=== PATIENT | female | born 1985 | race Caucasian/White ===

== ENCOUNTER 2017-12-09 13:04 | Inpatient (IN) | payer BC ==
[2017-12-09 14:01] VITALS: BMI 31.7
[2017-12-09] MEDS ORDERED: Penicillin G 5 Million Unit Vial IVPB ONE ×2 (14:07→18:35)
[2017-12-09] MEDS ORDERED: Lactated Ringer's 1,000 ML IV SCH (14:15)
[2017-12-09 14:59] LABS: BASO % 0.5 % (0.0-2.0); EOS # 0.1 K/uL (0.0-0.7); EOS % 1.7 % (0.0-4.0); HEMOGLOBIN 11.3 g/dL (11.0-16.0); LYMPH # 1.5 K/uL (1.0-4.3); LYMPH % 18.8 % (20.0-40.0); MEAN CELL VOLUME 86.3 fL (81.0-99.0); MEAN CORPUSCULAR HEMOGLOBIN 29.6 pg (27.0-31.0); MEAN CORPUSCULAR HGB CONC 34.3 g/dL (33.0-37.0); MEAN PLATELET VOLUME 8.6 fL (7.2-11.7); MONO # 0.5 K/uL (0.0-0.8); NEUT # 5.6 K/uL (1.8-7.0); RBC 3.82 Mil/uL (3.80-5.20); RED CELL DISTRIBUTION WIDTH 16.9 % (11.5-14.5); WHITE BLOOD COUNT 7.8 K/uL (4.8-10.8)
[2017-12-09 15:27] LABS: ALBUMIN 3.2 g/dL (3.5-5.0); ALT/SGPT 23 U/L (9-52); AST/SGOT 28 U/L (14-36); BLOOD UREA NITROGEN 10 mg/dL (7-17); GFR AFRICAN-AMERICAN > 60; GFR NON-AFRICAN AMERICAN > 60
--- NOTE | 2017-12-09 17:46 | OBPN ---
Datetime: 12/09/2017 17:42 IP Progress Impression: Reassuring heart rate IP Informed Consent Obtain: Vaginal Delivery IP Progress Plan: Induction; Cervical Ripening Contraction Comments Provider: irregular FHR - Baseline A Provider: 150s Gestation - Est Wks by US: 38 3/7 Weight - Estimated: 6lbs Presentation-Admit: Vertex IP Progress Note Comment: BSUS performed and confirmed cephalic position. Ceriviil inserted @ 5:44am . Vital Signs Provider: Reviewed NICHD Accel Fetus A IP Provider: 15X15 NICHD Variability Prov Fetus A: Moderate 6-25bpm Dilatation, Provider: FT Effacement, Provider: 30 Station, Provider: -3 Datetime: 12/09/2017 14:21 NICHD Decel Fetus A IP Provider: None
--- NOTE | 2017-12-09 18:37 | OBPN ---
Datetime: 12/09/2017 18:32 IP Progress Impression Other: SROM: IP Progress Impression: Normal progression of labor; Reassuring heart rate; Rupture of membran es IP Informed Consent Obtain: Induction of Labor IP Progress Plan: Continue present management; Cervical Ripening Contraction Comments Provider: irregular FHR - Baseline A Provider: 150 IP Progress Note Comment: PT SROM @6:30pm. meconium. SVE: 08/28/-3. continue currrent management. Cat egory 1 Tracing. NICHD Accel Fetus A IP Provider: 15X15 NICHD Variability Prov Fetus A: Moderate 6-25bpm Dilatation, Provider: 1 Effacement, Provider: 30 Station, Provider: -2
[2017-12-09] MEDS ORDERED: Oxytocin 30 UNIT 30 UNITS/500 ML BAG IV PRN (19:27)
--- NOTE | 2017-12-09 19:30 | CP.PCM.PN ---
Subjective - Date & Time of Evaluation Date of Evaluation: 12/09/17 Time of Evaluation: 19:29 - Subjective Subjective: Cervidil was removed spontaneously. Will start oxytocin. Objective - Medications Medications: Current Medications Acetaminophen (Tylenol 325mg Tab) 650 mg PO Q6 PRN PRN Reason: Pain, Mild (1-3) Acetaminophen (Tylenol 325mg Tab) 650 mg PO Q6 PRN PRN Reason: Fever >100.4 F Lactated Ringer's (Lactated Ringer's) 1,000 mls @ 0 mls/hr IV .Q0M [facility] PRN Reason: Per Protocol Stop: 12/12/17 23:59 Last Admin: 12/09/17 17:28 Dose: 125 mls/hr Penicillin G Potassium 2.5 mu/ (Sodium Chloride) 50 mls @ 2.5 mls/hr IVPB Q4H [facility] PRN Reason: Protocol Stop: 12/12/17 23:59 Oxytocin (Pitocin) 30 units in 500 mls @ 2 mls/hr IV .Q24H PRN; Protocol; 0.002 UNIT/MIN PRN Reason: Labor Levothyroxine Sodium (Levothroid) 137 mcg PO DAILY@0630 [facility] - Labs Labs: 12/09/17 14:49 12/09/17 15:09
[2017-12-09] MEDS ORDERED: Fentanyl/Bupivacaine HCl 250 ML EPI ONE (21:13)
--- NOTE | 2017-12-09 21:13 | CP.PCM.HP ---
History of Present Illness - History of Present Illness History of Present Illness: Pt is h34 @ 38 10/03 who presented today with compliants of vaginal spotting/bleeding since 11:30am. She states that this is her first epidsode and denies pain. Present on Admission - Present on Admission Any Indicators Present on Admission: No History of DVT/PE: No History of Uncontrolled Diabetes: No Urinary Catheter: No Decubitus Ulcer Present: No Review of Systems - Constitutional Constitutional: As Per HPI - EENT Eyes: As Per HPI Ears: As Per HPI - Breasts Breasts: As Per HPI - Cardiovascular Cardiovascular: As Per HPI - Respiratory Respiratory: As Per HPI - Gastrointestinal Gastrointestinal: As Per HPI - Reproductive: Female Reproductive:Female: As Per HPI Additional comments: Gravid uterus Past Patient History - Past Medical History & Family History Past Medical History?: Yes Pertinent Family History: Hx of GDMA1 diet controlled - Past Social History Smoking Status: Never Smoked Alcohol: None Drugs: Denies - CARDIAC Hx Cardiac Disorders: No Hx Angina: No Hx Atrial Fibrillation: No Hx Cardia Arrhythmia: No - PULMONARY Hx Respiratory Disorders: No Hx Asthma: No Hx Bronchitis: No Hx Chronic Obstructive Pulmonary Disease (COPD): No Hx Emphysema: No Hx Lung Cancer: No Hx Pneumonia: No - ENDOCRINE/METABOLIC Hx Hyperthyroidism: No Hx Hypothyroidism: Yes (on Synthroid) Meds Allergies/Adverse Reactions: Allergies Allergy/AdvReac Type Severity Reaction Status Date / Time No Known Allergies Allergy Verified 05/12/14 13:37 Physical Exam - Constitutional Appears: Well - Head Exam Head Exam: NORMAL INSPECTION - Eye Exam Eye Exam: Normal appearance - ENT Exam ENT Exam: Mucous Membranes Moist - Neck Exam Neck exam: Positive for: Normal Inspection - Exam External exam: NORMAL EXTERNAL EXAM Bimanual exam: NORMAL BIMANUAL EXAM Additional comments: SVE: closed/long/hi - Back Exam Back exam: NORMAL INSPECTION - Psychiatric Exam Psychiatric exam: Normal Affect, Normal Mood Results - Labs Result Diagrams: 12/09/17 14:49 12/09/17 15:09 Labs: Laboratory Results - last 24 hr 12/09/17 12/09/17 12/09/17 14:49 14:49 14:49 WBC 7.8 RBC 3.82 Hgb 11.3 Hct 33.0 L MCV 86.3 MCH 29.6 MCHC 34.3 RDW 16.9 H Plt Count 233 MPV 8.6 Neut % (Auto) 72.0 Lymph % (Auto) 18.8 L [place] % (Auto) 7.0 Eos % (Auto) 1.7 Baso % (Auto) 0.5 Neut # (Auto) 5.6 Lymph # (Auto) 1.5 [place] # (Auto) 0.5 Eos # (Auto) 0.1 Baso # (Auto) 0.0 Sodium Potassium Chloride Carbon Dioxide Anion Gap BUN Creatinine Est GFR ( Amer) Est GFR (Non-Af Amer) POC Glucose (mg/dL) Random Glucose Calcium Total Bilirubin AST ALT Alkaline Phosphatase Total Protein Albumin Globulin Albumin/Globulin Ratio RPR Nonreactive HIV 1&2 Antibody Screen Negative Blood Type Antibody Screen 12/09/17 12/09/17 12/09/17 15:09 16:15 19:54 WBC RBC Hgb Hct MCV MCH MCHC RDW Plt Count MPV Neut % (Auto) Lymph % (Auto) [place] % (Auto) Eos % (Auto) Baso % (Auto) Neut # (Auto) Lymph # (Auto) [place] # (Auto) Eos # (Auto) Baso # (Auto) Sodium 140 Potassium 4.0 Chloride 107 Carbon Dioxide 23 Anion Gap 14 BUN 10 Creatinine 0.5 L Est GFR ( Amer) > 60 Est GFR (Non-Af Amer) > 60 POC Glucose (mg/dL) 76 Random Glucose 66 Calcium 9.0 Total Bilirubin 0.7 AST 28 ALT 23 Alkaline Phosphatase 182 H Total Protein 6.6 Albumin 3.2 L Globulin 3.4 Albumin/Globulin Ratio 1.0 RPR HIV 1&2 Antibody Screen Blood Type B POSITIVE Antibody Screen Negative Assessment & Plan - Assessment and Plan (Free Text) Assessment: [id number] @ 38 10/03 admitted for induction of labor for vaginal bleeding, hx of GDMAx, IVF . Plan: 1) Vaginal bleeding: speculum exam performed and no bleeding noted. SVE: fingtertip/long/hi cervidil inserted for IOL 2) GDMA1- Accucheck q4 hours. 3) Hypothyroid: on synthroid. - Date & Time Date: 12/09/17 Time: 19:00
--- NOTE | 2017-12-09 23:20 | OBPN ---
Datetime: 12/09/2017 23:14 IP Progress Impression: Normal progression of labor; Reassuring heart rate IP Progress Plan: Continue present management Membranes, Provider: Ruptured FHR - Baseline A Provider: 125 Gestation - Est Wks by US: 38.3 Presentation-Admit: Vertex IP Progress Note Comment: @ 38+ wks IVF , hypothryiod adn gbs bacturiia c/o of VB this mornign and referred to er for evlaution. pt reports bleeding only wiht wiping and started having cr amping that was increaseing intnesity and severiyt, and rpeorts decreased feta lmvomentes since this morning VSS VE: /-1 SROM meconium A/P @ 38.3 wks GA IVF , GBS postive in active labor -admitted -blood glucos q 4 hour -Cervidil spotneaotuly expeclled adn SROM, meconium -ctx q 2 min -prgoression from FT-->3cm-->6cm-->9cm -con tivh, oxygen, left lateral ivh Vital Signs Provider: Reviewed; Within Normal Limits NICHD Variability Prov Fetus A: Moderate 6-25bpm Dilatation, Provider: 9 Effacement, Provider: 90 Station, Provider: -1 NICHD Decel Fetus A IP Provider: None
[2017-12-10] MEDS ORDERED: Oxytocin 30 UNIT 30 UNITS/500 ML BAG IV ONE (00:35)
[2017-12-10] MEDS ORDERED: Lidocaine 2% MPF (5 ml) Inj ONE (02:05)
[2017-12-10] MEDS ORDERED: Oxytocin 10 Units/ml Inj ONE (02:11)
[2017-12-10] MEDS ORDERED: Acetaminophen-Codeine 300/30 mg Tab PO PRN (02:46)
[2017-12-10] MEDS ORDERED: Benzocaine/Menthol 20%-0.5% Topical Spray (60 ml) TOP PRN (02:46)
[2017-12-10] MEDS ORDERED: Oxycodone/Acetaminophen 5/325 mg Tab PO PRN ×2 (02:46)
--- NOTE | 2017-12-10 02:47 | OBDS ---
DELIVERY PERSONNEL Delivery Doctor: Bright Day MD Scrub Nurse: Leslye Porter Central Processing Tech: Kim Stewart RN Anesthesiologist: MATERNAL INFORMATION Delivery Anesthesia: Epidural Medications in Delivery: Pitocin Estimated Blood Loss (ml): 400 Placenta Cultured: Yes Maternal Complications: None Provider Comments: pt was fully dilated and pushing, verbal consent for right mediolateral epistomy given. atrumatic, spontaenous delieyr of head in OP position, no nuchal cord noted. Aturmatic, spoena tous deliveyr of naterior followed by posteri shoulder followed by delivery of the body. Both oral an d nasal passages of the baby wer ebulb suctioned, umbical cord was clamped and cut .baby handed to [facility] shipping manager. Cord blood cand cord gases colelcted ans senx x 2. Spotenaou deliveyr of intact placenta with membrnea. fundus fimr, goo dhemsosis, right mediolateral and second degree prienal lac eationed rapired iwt local anestehsi lidocaien with epinephrine with 2-0 and 3-0 chormic. Good hemos tis, no complicated live male agpars 5,8 weight of 6lbs 5 ounces ebl 400ml no complicaitns LABOR SUMMARY EDC: 12/20/2017 00:00 No. Babies in Womb: 1 Attempted: No Labor Anesthesia: Epidural LABOR INFORMATION Reason for Induction: Other Reason for Induction Other: GDM - Diet Controlled; IVF Complete Dilatation: 12/10/2017 00:24 Cervical Ripening Agents: Cervidil suppository came out voluntarily while patient was using bedpan. Oxytocin: N/A Group B Beta Strep: Positive Antibiotics # of Doses: 2 Antibiotics Time of Last Dose: 12/09/17 @ 2255 Steroids Given: None Reason Steroids Not Administered: Not Applicable Other Reason Not Administered: N/A MEMBRANES Membranes Rupture Method: Spontaneous Rupture of Membranes: 12/09/2017 18:22 Length of Rupture (hrs): 7.85 Amniotic Fluid Color: Light Meconium Amniotic Fluid Amount: Moderate Amniotic Fluid Odor: Normal STAGES OF LABOR Stage 2 hrs: 1 Stage 2 min: 49 Stage 3 hrs: 0 Stage 3 min: 7 VAGINAL DELIVERY Episiotomy: Right Mediolateral Laceration Extension: Second Degree Laceration Type: Perineal Laceration Repair: Yes Laceration Repair Note: right mediolateral episoitomy and second dgree perienal reparied iwth local and 2-0 and 3-0 chormic Initial Vag Sponge Count: 10 Final Vag Sponge Count: 30 Initial Vag Sharps Count: 0 Final Vag Sharps Count: 3 Sponge Count Correct: Yes; Vaginal Sweep Performed Sharps Count Correct: Yes Count Comment: count correct BABY A INFORMATION Infant Delivery Date/Time: 12/10/2017 02:13 Method of Delivery: Vaginal Born in Route : No : N/A Forceps: N/A Vacuum Extraction: N/A Shoulder Dystocia : No SHOULDER DYSTOCIA BABY A Infant Delivery Date/Time: 12/10/2017 02:13 PRESENTATION/POSITION BABY A Presentation: Cephalic Cephalic Presentation: Vertex Breech Presentation: N/A PLACENTA INFORMATION BABY A Placenta Delivery Time : 12/10/2017 02:20 Placenta Method of Delivery: Spontaneous Placenta Status: Delivered SCORES BABY A Heart Rate 1 min: Slow, Below 100 bpm Resp Effort 1 min: Slow, Irregular Reflex Irritability 1 min: Grimace Muscle Tone 1 min: Some Flexion of Extremities Color 1 min: Body [place], Extremities Blue SCORE 1 MIN: 5 Heart Rate 5 min: >100 bpm Resp Effort 5 min: Good Cry Reflex Irritability 5 min: Cough or Sneeze or Pulls Away Muscle Tone 5 min: Some Flexion of Extremities Color 5 min: Body [place], Extremities Blue SCORE 5 MIN: 8 INFANT INFORMATION BABY A Gestational Age at Delivery: 38.4 Gestational Status: Term Infant Outcome : Liveborn Condition : Stable Sex: Male IDENTIFICATION/MEDS BABY A ID Band Number: [id number] ID Band Location: Left Leg; Left Arm Sensor Applied: Yes Sensor Number: [id number] Sensor Location : Cord Clamp WEIGHT/LENGTH BABY A Infant Birthweight (gms): 2870 Weight (lb): 6 Weight (oz): 5 Length Inches: 19.50 Infant Length cms: 49.5 CORD INFORMATION BABY A No. Cord Vessels: 3 Nuchal Cord : N/A Suction: Mouth; Nose; Pharynx ASSESSMENT BABY A Infant Complications: None Physical Findings at Delivery: Molding of the Head Physical Findings Other: At 1min of life irregular and gasping respiration Geographic Information Systems Analyst/ALS Called : No Care By: Transferred To: Remains with Mother
[2017-12-10 07:35] LABS: BASO % 0.1 % (0.0-2.0); HEMOGLOBIN 9.5 g/dL (11.0-16.0); LYMPH # 1.1 K/uL (1.0-4.3); LYMPH % 7.1 % (20.0-40.0); MEAN CELL VOLUME 86.1 fL (81.0-99.0); MEAN CORPUSCULAR HEMOGLOBIN 29.4 pg (27.0-31.0); MEAN CORPUSCULAR HGB CONC 34.1 g/dL (33.0-37.0); MEAN PLATELET VOLUME 8.8 fL (7.2-11.7); MONO # 1.2 K/uL (0.0-0.8); MONO % 8.2 % (0.0-10.0); NEUT # 12.7 K/uL (1.8-7.0); NEUT % 84.6 % (50.0-75.0); PLATELET COUNT 198 K/uL (130-400); RBC 3.24 Mil/uL (3.80-5.20); RED CELL DISTRIBUTION WIDTH 16.8 % (11.5-14.5)
[2017-12-10 08:17] LABS: ALB/GLOB RATIO 0.8 (1.0-2.1); ALBUMIN 2.4 g/dL (3.5-5.0); ALT/SGPT 24 U/L (9-52); AST/SGOT 22 U/L (14-36); BLOOD UREA NITROGEN 11 mg/dL (7-17); CALCIUM 8.3 mg/dl (8.6-10.4); GFR AFRICAN-AMERICAN > 60; GFR NON-AFRICAN AMERICAN > 60
[2017-12-10 08:41] LABS: BANDS 3 % (0-2); LYMPHOCYTE 6 % (20-40); MONOCYTE 5 % (0-10); NEUTROPHIL 86 % (50-75); TOTAL CELLS COUNTED 100
[2017-12-10 08:43] LABS: ANISOCYTOSIS SLIGHT; PLATELET ESTIMATE NORMAL (NORMAL)
[2017-12-10] MEDS: Multiple Vitamins Tab PO SCH (10:09)
--- NOTE | 2017-12-10 12:17 | OBPN ---
Datetime: 12/09/2017 20:29 IP Progress Impression: Normal progression of labor; Reassuring heart rate; Rupture of membran es IP Informed Consent Obtain: Vaginal Delivery; Induction of Labor IP Procedures: Sterile Vag Exam; Epidural Placement IP Progress Plan: Continue present management; Anesthesia consult Membranes, Provider: Ruptured Amniotic Fluid Color, Provider: Meconium, Heavy Contraction Comments Provider: q2-2 minutes FHR - Baseline A Provider: 140 Gestation - Est Wks by US: 38 3 IP Progress Note Comment: Pts cervidil was removed spontaneously. Pt missy q2-3 without medica tion. No oxytocin will be started since pt missy q2 minutes. Pt requesting epidural. She was ch ecked and was 3/90/0. Anesthesia consulted. NICHD Accel Fetus A IP Provider: [id number] NICHD Variability Prov Fetus A: Moderate 6-25bpm Dilatation, Provider: 3 Effacement, Provider: 90 Station, Provider: 0 NICHD Decel Fetus A IP Provider: None Signature: jenelle bowie
--- NOTE | 2017-12-11 07:02 | OBPPN ---
Datetime: 12/11/2017 07:00 PP Pain Prov: Within normal limits PP Nausea Prov: Denies PP Flatus Prov: Yes PP BM Prov: No PP Breasts Prov: Normal PP Heart Prov: Normal PP Lungs Prov: Normal PP Abdomen/Uterus Prov: Normal PP Lochia Prov: Normal PP Vulva/Perineum Prov: Normal PP CVA Tenderness Prov: Normal PP Extremities Prov: Normal PP C/S Incision Prov: Not Applicable PP Progress Prov: Normal PP Impression Prov: Normal progression PP Plan Prov: Continue present management PP Progress Note Prov: pt seen and examiend adn reprots pain controlled with medicaion. pt dnei any fever, chills, naue, vomitign, cp, sob. ambaitng, voidng passign flatu, toelrating liuid and is linda t feeding VSS PE GEN NAD AA ox 3 RESP CTAB?l CVS: RRR< +S1/S2 BREAST NT, NOn engorage db/l ABD: soft, NT/ND, +BS FUNDUS: Firm, bweow level o fumbilcs VE: minimal lochia, non foul smelling EXT: no calef tendnerness, engaive homans sign PPD #1 with hypothyord -restart synthorid -Pain manamgnet: perocet/motirn -Advance diet at tolerated -encourage breast feedign adn mabuaiton -bowel ergime -am labs -cont routine care Vital Signs Provider PP: Reviewed
[2017-12-11 08:07] LABS: BASO % 0.3 % (0.0-2.0); EOS # 0.2 K/uL (0.0-0.7); EOS % 1.6 % (0.0-4.0); HEMOGLOBIN 8.1 g/dL (11.0-16.0); LYMPH # 2.2 K/uL (1.0-4.3); LYMPH % 19.9 % (20.0-40.0); MEAN CELL VOLUME 86.7 fL (81.0-99.0); MEAN CORPUSCULAR HEMOGLOBIN 29.2 pg (27.0-31.0); MEAN CORPUSCULAR HGB CONC 33.6 g/dL (33.0-37.0); MEAN PLATELET VOLUME 8.2 fL (7.2-11.7); MONO # 0.8 K/uL (0.0-0.8); MONO % 7.3 % (0.0-10.0); NEUT # 7.7 K/uL (1.8-7.0); NEUT % 70.9 % (50.0-75.0); RBC 2.78 Mil/uL (3.80-5.20); RED CELL DISTRIBUTION WIDTH 17.2 % (11.5-14.5); WHITE BLOOD COUNT 10.9 K/uL (4.8-10.8)
[2017-12-11] MEDS: Multiple Vitamins Tab PO SCH (10:25)
[2017-12-12 08:51] VITALS: BP 141/90; PULSE 78; RESP 20; TEMP 97.4; O2SAT 97
[2017-12-12] MEDS: Multiple Vitamins Tab PO SCH (09:46)
== END 2017-12-12 18:30 | disposition home or self-care (01) | DRG 774 ==
LOC: C.EROB 13:04 → C.4D 14:05 → C.4M 12-10 04:10
PROVIDERS: ADMIT Obstetrics & Gynecology; ATTEND Obstetrics & Gynecology
PROC: 0KQM0ZZ Repair Perineum Muscle, Open Approach (ICD-10-PCS; principal; 2017-12-10)
PROC: 10E0XZZ Delivery of Products of Conception, External Approach (ICD-10-PCS; 2017-12-10)
PROC: 0W8NXZZ Division of Female Perineum, External Approach (ICD-10-PCS; 2017-12-10)
DX: O24.420 Gestational diabetes mellitus in childbirth, diet controlled (principal); O99.42 Diseases of the circulatory system complicating childbirth; O99.284 Endocrine, nutritional and metabolic diseases complicating childbirth; E03.9 Hypothyroidism, unspecified; Z3A.38 38 weeks gestation of pregnancy; O70.1 Second degree perineal laceration during delivery; O99.824 Streptococcus B carrier state complicating childbirth; Z37.0 Single live birth